=== PATIENT | male | born 1965 | race Caucasian/White ===

== ENCOUNTER 2018-02-16 11:15 | Emergency (ER) | payer OTHER ==
[2018-02-16 11:35] VITALS: BP 142/85; PULSE 63; TEMP 99.7; BMI 26.1
[2018-02-16] MEDS ORDERED: ACETAMINOPHEN 325 MG TABLET (FP) PO ONE (12:02)
[2018-02-16] MEDS ORDERED: ACETAMINOPHEN 325 MG TABLET (FP) ONE (12:07)
--- NOTE | 2018-02-16 12:07 | PDOC ---
History of Present Illness - General Chief Complaint: Pain Stated Complaint: LT SIDE PAIN Time Seen by Provider: 02/16/18 12:00 History Source: Patient Exam Limitations: No Limitations (52y/o M with L sided Rib pain after accidently hitting chest against a ") - History of Present Illness Initial Comments: 02/16/18 12:04 52y/o M with L sided rib pain X 3 days after accidently walking into a " Ups[employer] machine at work denies SOB, palpitation Associated Symptoms: reports: other (chest wall pain). denies: chest pain, cough, fever/chills Past History - Travel Traveled outside of the country in the last 30 days: No Close contact w/someone who was outside of country & ill: No - Past Medical History Allergies/Adverse Reactions: Allergies Allergy/AdvReac Type Severity Reaction Status Date / Time No Known Allergies Allergy Verified 02/16/18 11:35 Home Medications: Ambulatory Orders Cyclobenzaprine HCl [Flexeril] 10 mg PO TID #20 tablet 02/07/12 Naproxen 375 mg PO BID 10 Days #20 tablet 02/16/18 Spirometer/Drug Delivery Adapt [Mistassist Kit] 1 each MC ACDIN 7 Days #1 each 02/16/18 COPD: No HTN: Yes Hypercholesterolemia: Yes - Suicide/Smoking/Psychosocial Hx Smoking Status: No Smoking History: Never smoked Number of Cigarettes Smoked Daily: 0 Review of Systems - Review of Systems Is the patient limited Cymraes proficient: No Constitutional: No: Chills, Fever Respiratory: No: Cough, Orthopnea, Shortness of Breath, SOB with Exertion, SOB at Rest, Hemoptysis Cardiac (ROS): No: Chest Pain, Lightheadedness, Palpitations, Syncope, Chest Tightness ABD/GI: No: Abdominal Distended, Abd. Pain w/ defecation Neurological: No: Headache, Numbness Psychiatric: No: Frequent Crying *Physical Exam - Vital Signs Last Vital Signs Temp Pulse Resp BP Pulse Ox 99.7 F H 63 18 142/85 99 02/16/18 11:31 02/16/18 11:31 02/16/18 11:31 02/16/18 11:31 02/16/18 11:31 - Physical Exam General Appearance: Yes: Nourished Respiratory/Chest: positive: Lungs Clear, Normal Breath Sounds Cardiovascular: positive: Regular Rhythm, Regular Rate, S1, S2 Integumentary: positive: Other (no abrasion on chest wall, ++ tenderness in anterior ribs on the left ribs 6-8 region). negative: Erythema, Ecchymosis, Bruising Neurologic: positive: scanning tech II-XII NML intact, Fully Oriented, Alert ED Treatment Course - RADIOLOGY Radiology Studies Ordered: Category Date Time Status CHEST PA & LAT [RAD] Stat Radiology 02/16/18 12:02 Ordered RIBS-LEFT SIDE [RAD] Stat Radiology 02/16/18 12:02 Ordered Medical Decision Making - Medical Decision Making 02/16/18 12:06 52y/o M with L sided rib pain after walking into a machine at work 3 days ago, denies palpitation, SOB, dizziness or radiation exam consistent with muscle tenderness along left costosternal region xray to r/o fx pain control 02/16/18 14:28 xray neg for fx incentive spirometry motrin *DC/Admit/Observation/Transfer Diagnosis at time of Disposition: Contusion of rib on left side - Discharge Dispostion Disposition: HOME Condition at time of disposition: Improved - Prescriptions Prescriptions: Naproxen 375 mg PO BID 10 Days #20 tablet Spirometer/Drug Delivery Adapt [Mistassist Kit] 1 each MC ACDIN 7 Days #1 each - Referrals - Patient Instructions Printed Discharge Instructions: DI for Rib Contusion Additional Instructions: I discussed the physical exam findings, ancillary test results and final diagnoses with the patient. I answered all of the patient's questions. The patient was satisfied with the care received and felt comfortable with the discharge plan and treatment plan. The patient will call their primary care physician within 24 hours to arrange follow-up and will return to the Emergency Department with any new, persistant or worsening symptoms. - Post Discharge Activity
== END 2018-02-16 13:31 | disposition home or self-care (01) ==
LOC: JERFT 11:15
DX: S20.212A Contusion of left front wall of thorax, initial encounter (principal); W31.89XA Contact with other specified machinery, initial encounter; Y93.H3 Activity, building and construction; Y92.69 Other specified industrial and construction area as the place of occurrence of the external cause; Y99.0 Civilian activity done for income or pay
CPT/HCPCS: 71046-TC-FY; 71101-TC-FY; 99281-25